=== PATIENT | female | born 1985 | race Caucasian/White ===

== ENCOUNTER 2017-05-04 13:59 | Emergency (ER) | payer OTHER ==
[2017-05-04 14:13] VITALS: BP 126/71
[2017-05-04] MEDS ORDERED: Rabies Vaccine, PCEC INJ* 1 ml IM ONE (14:29)
[2017-05-04] MEDS ORDERED: Rabies Immune Globulin 10 ML* 150 UNIT/ML VIAL IM ONE (14:30)
[2017-05-04] MEDS ORDERED: Rabies Immune Globulin 2 ML* 150 UNITS/ML VIAL IM ONE ×2 (14:30→14:40)
--- NOTE | 2017-05-04 14:48 | UC ---
Bite Injury/Animal HPI - HPI Summary HPI Summary: Woke to bat in bedroom today. Here per [facility] for rabies prophylaxis. No known wounds or bites -- last tdap in 2010. - History of Current Complaint Chief Complaint: UCGeneralIllness Stated Complaint: RABIES EXPOSURE Time Seen by Provider: 05/04/17 14:18 Hx Obtained From: Patient Hx Last Menstrual Period: 04/19/17 ?: No Severity Currently: None Onset/Duration: Sudden Onset Type of Bite: Wild Animal Has Animal Been Immunized?: N/A Associated Signs And Symptoms: Positive: Negative Animal Available for Observation: No Animal Control Notified: Yes - Allergies/Home Medications Allergies/Adverse Reactions: Allergies Allergy/AdvReac Type Severity Reaction Status Date / Time No Known Allergies Allergy Verified 05/04/17 14:12 Home Medications: Home Medications Etonogestrel IMPLANT(NF) [Implanon (NF)-not available] 1 applic ONCE 05/04/17 [ History Confirmed 05/04/17] Levothyroxine Sodium [Synthroid] 62.5 mcg PO DAILY 05/04/17 [History Confirmed 05/04/17] PMH/Surg Hx/FS Hx/Imm Hx Previously Healthy: Yes - Surgical History Surgical History: None - Family History Known Family History: Negative: Blood Disorder - Social History Lives: With Family Alcohol Use: Weekly Substance Use Type: None Smoking Status (MU): Former Smoker - Immunization History Most Recent Influenza Vaccination: approx 2010 Review of Systems Constitutional: Negative Skin: Negative Eyes: Negative ENT: Negative Respiratory: Negative Cardiovascular: Negative Gastrointestinal: Negative Genitourinary: Negative Motor: Negative Neurovascular: Negative Musculoskeletal: Negative Neurological: Negative Psychological: Negative All Other Systems Reviewed And Are Negative: Yes Physical Exam Triage Information Reviewed: Yes Appearance: Well-Appearing, No Pain Distress, Well-Nourished Vital Signs: Initial Vital Signs Temp 99.1 F 05/04/17 14:07 Pulse 88 05/04/17 14:07 Resp 18 05/04/17 14:07 BP 126/71 05/04/17 14:07 Pulse Ox 99 05/04/17 14:07 Vital Signs Reviewed: Yes Eye Exam: Normal Eyes: Positive: Conjunctiva Clear ENT Exam: Normal ENT: Positive: Normal ENT inspection, Hearing grossly normal, Pharynx normal, TMs normal Dental Exam: Normal Neck exam: Normal Neck: Positive: Supple, Nontender, No Lymphadenopathy Respiratory Exam: Normal Respiratory: Positive: Chest non-tender, Lungs clear, Normal breath sounds, No respiratory distress, No accessory muscle use Cardiovascular Exam: Normal Cardiovascular: Positive: RRR, No Murmur Musculoskeletal Exam: Normal Neurological Exam: Normal Neurological: Positive: Alert Psychological Exam: Normal Skin Exam: Normal Bite Injury Course/Dx - Course Course Of Treatment: no tdap given today because pt is UTD and has no identifiable wounds. - Differential Dx/Diagnosis Provider Diagnoses: rabies exposure. rabies prophylaxis Discharge - Discharge Plan Condition: Stable Disposition: HOME Patient Education Materials: Rabies (ED), Rabies Vaccine (By injection) Referrals: Zoraida Meyer MD [Primary Care Provider] - Additional Instructions: Follow up with the [facility] Department for further rabies vaccines.
== END 2017-05-04 16:04 | disposition home or self-care (01) ==
LOC: UCEAST 13:59
DX: Z20.3 Contact with and (suspected) exposure to rabies (principal); Z29.14 Encounter for prophylactic rabies immune globulin; Z87.891 Personal history of nicotine dependence
CPT/HCPCS: 90375; 90471; 90675; 96372; 99211; G0463

== ENCOUNTER 2019-06-27 18:40 | Inpatient (IN) | payer OTHER ==
[2019-06-28] MEDS ORDERED: Buffered Lidocaine 1% SYRIN* 1 ML/SYRINGE INTRADERM ONE (00:19)
[2019-06-28] MEDS ORDERED: Dinoprostone* 10 MG VAG.SUPP VAGINAL ONE (00:19)
[2019-06-28] MEDS ORDERED: Lactated Ringers 1000 ML Bag* 1,000 ML IV ONE (00:19)
--- NOTE | 2019-06-28 00:28 | HP ---
General Information - Reason for Visit Postdates ripening/IOL - General Information Maternal Age: 34 Grav: 1 Para: 0 SAB: 0 IEA: 0 Estimated Due Date: 06/20/19 Determined By: LMP Maternal Blood Type and Rh: O Positive - Results this Serology/RPR Result: Non-Reactive Rubella Result: Immune HBsAg Result: Negative HIV Result: Negative GBS Culture Result: Negative Past Medical History Delivery History: See Records Delivery History Comment: no prior deliveries Pertinent Past Medical History: See Records Past Medical History Comment: hypothyroidism, on replacement. Depression, not on medication. Migraine Pertinent Past Surgical History: See Records Past Surgical History Comment: wisdom tooth extraction - 2000 Pertinent Family History: See Records Family History Comment: Father: Hypertension, hyperlipidemia Mother: due to cirrhosis, alcoholism - Antepartal Records Antepartal Records: Reviewed, Complicated by: - hypothyroidism, placenta previa (resolved) Review of Systems Constitutional: Comfortable CV Complaint: No Respiratory: Shortness of Breath: No Gastrointestinal: No Nausea/Vomiting Genitourinary: No Dysuria, No Bleeding, No Leaking Fluid Musculoskeletal: No Complaint, No Epigastric Pain Neurological: No Headache, No Visual Changes Movement: Normal Exam Allergies/Adverse Reactions: Allergies No Known Allergies Allergy (Verified 05/04/17 14:12) B/P: 125/81, P: 90, R: 20 - Measurements Height: 5 ft 4 in Weight: 220 lb Weight in lbs: [id number] Body Mass Index (BMI): 37.8 Pre- Weight: 205 lb Weight Gained This : 15 lbs and 0 ozs - Exam Breast: Breast Exam Deferred CVA: No CVA Tenderness Extremities: No Edema Heart: Normal Rhythm/Heart Sounds HEENT: No Significant Findings Lungs: Clear Bilaterally Reflexes: DTR 2+ - Abdominal Exam Abdomen Exam: Non-Tender, Fundal Height Consistent with Dates Targeted Exam Findings See L&D Outpatient Visit Provider Note for Findings: N/A Estimated Weight: 8 lb by reanna's Cervical Exam: 1cm Effacement: 50% Station: -2 Presenting Part: Vertex Membrane Status: Intact Bleeding/Discharge: None EFM Findings - External Monitor Findings Baseline Heart Rate: 120 External Monitor Findings: Accelerations Present, No Pattern of Variable or Late Decelerations, Variability Moderate, Baseline Stable Contractions: Irregular, Mild, 45-90 Seconds Assessment/Plan - Assessment A: IUP at 41 0/7 weeks Category I FHR, no evidence of metabolic acidemia GBS negative Rodriguez Score: 3 P: Discussed cervidil for ripening; Sol in agreement Reassess PRN Anticipate SVB - Obstetrical Risk Factors Obstetrical Risk Factors: Post-Dates, Obesity - Plan Plan: Cervical Ripening, Admit - Anticipate Vaginal Delivery - Date/Time of Admission Date of Admission: 06/28/19 Time of Admission: 00:00
[2019-06-28 05:37] LABS: Urine Benzodiazepine Screen None Detected (None Detect); Urine Opiates Screen None Detected (None Detect)
--- NOTE | 2019-06-28 11:14 | PTEDU ---
Patient Name: PRABHU DEL VALLE LASHELLPRABHU WYATT selected video: Never Ever Shake a Baby to view on 06/28/2019 at 11:12:16 AM [id number]
--- NOTE | 2019-06-28 11:28 | PTEDU ---
Patient Name: PRABHU DEL VALLE PRABHU DEL VALLE selected video: BBOB: Nurturing Your Gorgeous &Growing Baby by to view on 06/28/2019 at 11:26:02 AM [id number]
[2019-06-28] MEDS ORDERED: Acetaminophen TAB* 325 MG PO PRN (12:52)
--- NOTE | 2019-06-28 13:59 | PN ---
Progress Note - Progress Note Date of Service: 06/28/19 Note: S: Pt resting in bed. Feeling some cramping, but comfortable. Pt reports headache improving. Denies s/sx of PEC. O: VE: 2/50/-2, soft, vtx FHR 135, moderate variability, +accels, no decels Cervidil removed A: 34 yo, IUP@41, not in active labor Cervidil removed without complication No evidence of metabolic acidemia Contractions every 2-4 mins P: PARQ discussion about next step for ripening, including cook catheter and pitocin. Pt and do not want to use pitocin unless absolutely necessary. Opts for cook catheter. Pain meds prn Anticipate progression to active labor.
--- NOTE | 2019-06-28 21:07 | PN ---
Progress Note - Progress Note Date of Service: 06/28/19 Note: Cook catheter placed. Uterine and vaginal balloon inflated to 80mL. Pt tolerated procedure well. Again declines Pitocin.
[2019-06-28] MEDS ORDERED: Nalbuphine* 10 MG/ML 1 ML VIAL IM PRN (21:28)
[2019-06-28] MEDS ORDERED: Promethazine INJ(RESTRICTED)* 25 MG/ML 1 ML VIAL IM PRN (21:29)
[2019-06-28] MEDS: Levothyroxine TAB* 75 MCG TAB PO SCH (21:45)
--- NOTE | 2019-06-28 22:18 | PN ---
Progress Note - Progress Note Date of Service: 06/28/19 Note: S: Pt resting in bed. Ongoing back pain. Watching a movie. Requesting pain meds. O: VE: deferred VSS stable A: 34 yo, IUP@41, not in active labor Cook catheter in place P: IM nubain and phenergan ordered. SE reviewed with patient. Plan to remove Cook catheter at 0200. Will develop plan for ongoing induction following removal. Anticipate progression to active labor.
--- NOTE | 2019-06-29 02:42 | PN ---
Progress Note - Progress Note Date of Service: 06/29/19 Note: S: Pt sleeping. Had nubain/phenergan at 2140. Not feeling contractions. Denies vb/ lof. Active FM. O: VE: 98.5, BP 110/76, HR 79 FHR 125, moderate, +accels, no decels Cook catheter removed A: 34 yo, IUP@41, not in active labor VSS, afebrile No evidence of metabolic acidemia Uterus palpates moderate with contractions, good resting tone Pt tolerated removal of Cook catheter well P: Discussed starting Pitocin now. Pt would like to sleep for 4-5 hours and resume IOL in the AM. Anticipate progression to active labor.
[2019-06-29] MEDS ORDERED: Influenza VAC *QUAD* 2019-20* 0.5 ML SYRINGE IM ONE (09:00)
--- NOTE | 2019-06-29 09:38 | PN ---
Progress Note - Progress Note Date of Service: 06/29/19 SOAP: Subjective: Pt feeling well, slept overnight. Has some trepidation about Pitocin but feels ready to start. Objective: Cervical exam deferred (was favorable at last check) FHR: Baseline 130/ moderate variability/ + accels/ no decels UCs: none Temp: 98.7 BP: 107/80 position LIZANDRO by Saqib's Assessment: 34 year old at 41 2/7 weeks gestation with favorable cervix, no evidence of acidemia, here for IOL for postdates and oligohydramnios. Membranes intact. Plan: Discussed options with pt, including Pitocin induction vs amniotomy. As she is primiparous and not currently chandrika, I recommend Pitocin induction, can consider amniotomy once pt in more active labor, but would prefer not to risk prolonged rupture of membranes. Pt agrees. Discussed risks and benefits of Pitocin, expected progression of labor. Orders placed for IV access and initiation of Pitocin induction.
[2019-06-29] MEDS ORDERED: Oxytocin in LR* 20 UNITS/1,000 ML BAG IVPB SCH (10:00)
[2019-06-29] MEDS: Lactated Ringers 1000 ML Bag* 1,000 ML IV SCH (10:10)
[2019-06-29 10:18] LABS: ABS Lymphocytes 1.3 10^3/ul (1.0-4.8); ABS Monocytes 0.9 10^3/ul (0-0.8); ABS Neutrophils 10.7 10^3/ul (1.5-7.7); Eosinophil % 0.3 %; Hematocrit 39 % (35-47); Hemoglobin 13.2 g/dL (12.0-16.0); Lymphocyte % 9.8 %; Mean Corpuscular HGB Conc 34 g/dL (31-36); Mean Corpuscular Hemoglobin 31 pg (27-31); Mean Corpuscular Volume 92 fL (80-97); Platelet Count 201 10^3/uL (150-450); Red Blood Count 4.26 10^6 /uL (3.70-4.87); Red Cell Distribution Width 14 % (10-15)
--- NOTE | 2019-06-29 12:00 | PTEDU ---
Patient Name: PRABHU DEL VALLE PRABHU DEL VALLE selected video: Follow Me Mum: The [facility] to Successful to view on 06/29/2019 at 11:57:50 AM from [id number]
--- NOTE | 2019-06-29 12:46 | PN ---
Progress Note - Progress Note Date of Service: 06/29/19 SOAP: Subjective: Pt comfortable. Ambulated in the halls for a while, now eating lunch. Will try to take a nap when done. Feeling some mild ctx. Objective: FHR: Baseline 130/ moderate variability/ + accels/ no decels UCs: 3-4 minutes Pitocin at 8 mu/min BP: 117/74, T-97.5 Assessment: Pitocin induction proceeding. FHR with no evidence of acidemia. Not yet in active labor. Plan: Continue Pitocin induction. Labor support and comfort measures as needed.
--- NOTE | 2019-06-29 15:09 | PN ---
Progress Note - Progress Note Date of Service: 06/29/19 SOAP: Subjective: Pt more uncomfortable with ctx. Reports intermittent tightening in low back, wrapping around to front. Rested but did not nap. Has been doing some counterpressure with . Appears to be coping well. Objective: FHR: Baseline 125 cc/ hr UCs: 2-3 minutes Pitocin at 10 mu/min Membranes intact Assessment: Pt appears to be getting into more active labor. No evidence of acidemia. Coping well. Plan: Continue Pitocin augmentation. Labor support and comfort measures as needed.
--- NOTE | 2019-06-29 17:47 | PN ---
Progress Note - Progress Note Date of Service: 06/29/19 SOAP: Subjective: Pt much more uncomfortable now. C/o back pain with ctx as well as in between. Currently leaning forward towards bed, academic guidance specialist using rebozo to do abdominal lifts and warm packs to back. Objective: Pitocin was titrated down in response to pt's ctx until it was turned off. Pt continues to have strong UCs 3-5 minutes apart. FHR: auscultated through ctx at 125 w/ accel auscultated. Membranes intact Assessment: Pt appears to be getting into more active labor. Pitocin off at this time, can restart if UCs space out. Pt coping well with strong support from academic guidance specialist and . Cervical exam deferred at this time. Plan: Expectant management at this time. Can restart Pitocin if needed. Will recheck cervix when pt feels ready. Labor support and comfort measures. Intermittent auscultation. Anticipate .
--- NOTE | 2019-06-29 20:21 | PN ---
Progress Note - Progress Note Date of Service: 06/29/19 SOAP: Subjective: Pt used tub for a while, now using nitrous oxide, coping effectively with contractions. and regulatory submissions specialist at bedside Objective: FHR: Baseline 130/ frequent accelerations/ no decelerations/ moderate variability UCs: Q 2-3 minutes, strong Temp: 98.2, BP- 130/84 Probable SROM to clear fluid while in tub Cervix: 6-7cm/ +1/ vtx/ 100% Assessment: Pt making good progress, coping well. No evidence of acidemia or chorioamnionitis. Plan: Continue expectant management. Continue nitrous oxide for pain relief as desired by pt. Anticipate .
--- NOTE | 2019-06-29 22:08 | PN ---
Progress Note - Progress Note Date of Service: 06/29/19 Note: Pt utilizing nitrous oxide w/ ctx. In hands and knees position leaning on back of bed. Very uncomfortable but coping well. Last exam: 8cm/ 100%/ +1/ vtx. FHR with no evidence of acidemia. Membranes likely ruptured, clear fluid. Continue nitrous oxide and labor support. Anticipate progression to complete dilation and spontaneous urge to push. Anticipate .
--- NOTE | 2019-06-29 23:22 | PN ---
Progress Note - Progress Note Date of Service: 06/29/19 SOAP: Subjective: Pt back in tub. Coping well. Arson Investigator and bedside her. Objective: FHR: Baseline 115, moderate variability, + accels, no decels UCs: Q 3-5 minutes T: 98.1 Most recent cervical exam: 8cm/ 100%/ +1 at 2137 Assessment: Pt coping well with good support. No evidence of chorioamnionitis or acidemia. Plan: Recheck when tolerated by pt. We have done multiple position changes, she has sat on the toilet, now back in tub. Anticipate .
[2019-06-30] MEDS: Lactated Ringers 1000 ML Bag* 1,000 ML IV SCH ×2 (00:10→04:09)
[2019-06-30] MEDS ORDERED: OBEPIDURAL* 250 ML EPIDURAL ONE ×2 (00:42→01:10)
[2019-06-30] MEDS ORDERED: Sodium Citrate/Citric Acid* 15 ML UDC PO PRN (01:40)
[2019-06-30] MEDS ORDERED: Phenylephrine 40 MCG/ML SYRINGE IV PUSH PRN ×2 (01:40)
[2019-06-30] MEDS ORDERED: Lactated Ringers 1000 ML Bag* 1,000 ML IV ONE (01:40)
[2019-06-30] MEDS ORDERED: Famotidine TAB* 20 MG PO PRN (01:40)
[2019-06-30] MEDS ORDERED: Lactated Ringers 1000 ML Bag* 500 ML IV PRN ×2 (01:40)
[2019-06-30] MEDS ORDERED: OBEPIDURAL* 250 ML EPIDURAL SCH (02:00)
[2019-06-30] MEDS ORDERED: Lactated Ringers 1000 ML Bag* 1,000 ML IV SCH ×2 (02:00→11:00)
--- NOTE | 2019-06-30 02:25 | PN ---
Progress Note - Progress Note Date of Service: 06/30/19 SOAP: Subjective: Pt requested and received labor epidural. Now resting comfortably. and feed mill tender at bedside. Objective: FHR: Baseline 120/ moderate variability/ + accels/ no decels UCs: 1-8 minutes BP: 128/74 Temp: 98.2 Assessment: Pt with slowed rate of dilation. No evidence of acidemia. Plan: Rest with epidural. Will consider Pitocin augmentation if ctx continue to be irregular or space out. Anticipate .
--- NOTE | 2019-06-30 04:08 | PN ---
Progress Note - Progress Note Date of Service: 06/30/19 SOAP: Subjective: Pt sleeping comfortably Objective: Cervix: Anterior lip/ +1/ vtx FHR: Baseline 120/ moderate variability/ + accels/ no decels UCs: Q10-12 minutes Assessment: Pt making progress but ctx spacing out. Pt previously declined Pitocin but states okay with it now. No evidence of acidemia. Plan: Restart low dose Pitocin. Anticipate normal progression to complete, .
[2019-06-30] MEDS ORDERED: Methylergonovine INJ* 0.2 MG/ML 1ML AMP ONE (10:06)
[2019-06-30] MEDS ORDERED: Misoprostol TAB* 200 MCG PR ONE (10:46)
[2019-06-30] MEDS ORDERED: Glycerin ADULT SUPP PR PRN (10:46)
[2019-06-30] MEDS ORDERED: Methylergonovine INJ* 0.2 MG/ML 1ML AMP IM ONE (10:46)
[2019-06-30] MEDS ORDERED: Dibucaine 1% 28.35 GM TUBE PR PRN (10:46)
[2019-06-30] MEDS ORDERED: Acetaminophen TAB* 325 MG PO PRN (10:46)
--- NOTE | 2019-06-30 10:56 | PROCNOTE ---
[facility] OB: Delivery Note - Delivery A Date of : 06/30/19 Time of : 09:52 [place] Sex: Female Score 1 Minute: 9 Score 5 Minutes: 9 Gestational Age in Weeks and Days at Delivery: 41 Weeks and 3 Days Delivery Method: Spontaneous Vaginal Labor: Induced Did Patient attempt ?: N/A, No Previous Amniotic Fluid: Clear Estimated Blood Loss: 750 Anesthesia/Analgesia: CEI for Labor, Nitrous-Labor Anesthesia Comment: Dr. Morgan Delivered By: Bouchra Maguire - Nursery Level of Nursery: Regular/Bedside - Perineum Perineal Injury: 2nd Degree Perineal Injury Comment: with 3-0 vicryl rapide Perineal Repair: By Delivering Practioner - Events Delivery Events of Note: Pitocin During Labor, Protracted/Long Labor, Post- Bleeding - Meds Given - Risk for Falls Delivered OB Patient- Risk for Falls: Heavy Bleeding Fall Risk: Patient is at High Risk for Falls - Additional Delivery Notes Additional Delivery Notes: G1PO now 41 3 received cervidil x 2 and cook catheter for postdates ripening followed by pitocin augmentation of labor. Experienced SROM at 1835 to clear fluid, received CEI per preference with good relief. Began pushing at 0720 with Jessica Hawkins CNM and care assumed by this author at 0800. Sol in hands- knees position, infant crowned slowly OA to LIZANDRO at 1952, shoulders followed easily with next push. Female infant passed through maternal legs, Sol assisted into reclining position. vigorous, HR>110, spontaneous cry, bulb suctioned for copious secretions. Cord was doubly clamped and cut by mother after pulsations ceased, about 4 mins. Intact jian placenta at 1001, brisk bleeding noted. Pitocin increased to 250 and misoprostol 800 mcg [place] given. Clots expressed from lower uterine segment, bleeding continued and 0.2 methergine given in right thigh. Bleeding slowed, fundus firm with massage. Perineum and vagina inspected, 2nd degree laceration noted and repaired in the usual fashion. Mother and stable at time of note, initiated, EBL = 750
[2019-06-30] MEDS ORDERED: Oxytocin in LR* 20 UNITS/1,000 ML BAG IVPB SCH (11:00)
[2019-06-30] MEDS ORDERED: Simethicone TAB* 80 MG TAB.CHEW PO SCH (12:30)
[2019-06-30] MEDS ORDERED: Ammonia Inhalant* 1 EA AMP ONE (12:47)
[2019-06-30] MEDS: Docusate CAP* 100 MG PO SCH ×2 (14:20→21:29)
[2019-06-30] MEDS: Witch Hazel PAD* JAR TOPICAL PRN (16:46)
[2019-06-30] MEDS: Ibuprofen TAB* 600 MG PO SCH (18:22)
--- NOTE | 2019-06-30 19:36 | PTEDU ---
Patient Name: PRABHU DEL VALLE LASHELLPRABHU WYATT selected video: BBOB: Bonding Through Infant Massage to view on 06/30/2019 at 7:33:42 PM [email or web address]
--- NOTE | 2019-06-30 20:26 | PTEDU ---
Patient Name: PRABHU DEL VALLE PRABHU DEL VALLE selected video: BBOB: Nurturing Your Gorgeous &Growing Baby by to view on 06/30/2019 at 8:23:13 PM [id number]
[2019-06-30] MEDS: Levothyroxine TAB* 75 MCG TAB PO SCH ×2 (21:30→22:20)
[2019-07-01] MEDS: Ibuprofen TAB* 600 MG PO SCH ×2 (08:15→18:15)
[2019-07-01] MEDS: Docusate CAP* 100 MG PO SCH ×3 (08:16→21:17)
[2019-07-01 08:19] LABS: Hematocrit 28 % (35-47); Hemoglobin 9.6 g/dL (12.0-16.0); Mean Corpuscular HGB Conc 34 g/dL (31-36); Mean Corpuscular Hemoglobin 31 pg (27-31); Mean Corpuscular Volume 92 fL (80-97); Platelet Count 189 10^3/uL (150-450); Red Blood Count 3.05 10^6 /uL (3.70-4.87); Red Cell Distribution Width 14 % (10-15); White Blood Count 18.3 10^3/uL (3.5-10.8)
[2019-07-01 08:47] LABS: ABS Basophils 0.1 10^3/ul (0-0.2); ABS Lymphocytes 2.2 10^3/ul (1.0-4.8); ABS Monocytes 1.6 10^3/ul (0-0.8); ABS Neutrophils 14.4 10^3/ul (1.5-7.7); Eosinophil % 0.2 %
[2019-07-01] MEDS: Ferrous Gluconate TAB* 324 MG TAB PO SCH ×2 (09:00→21:17)
[2019-07-01] MEDS ORDERED: Lidocaine 1% INJ* 10 MG/ML 30 ML SDV ONE (19:18)
[2019-07-01] MEDS: Witch Hazel PAD* JAR TOPICAL PRN (21:17)
[2019-07-01] MEDS: Levothyroxine TAB* 75 MCG TAB PO SCH (21:17)
[2019-07-02] MEDS: Ferrous Gluconate TAB* 324 MG TAB PO SCH (08:23)
[2019-07-02] MEDS: Docusate CAP* 100 MG PO SCH (08:23)
[2019-07-02] MEDS: Ibuprofen TAB* 600 MG PO SCH (08:23)
[2019-07-02 08:29] VITALS: BP 112/76
== END 2019-07-02 11:20 | disposition home or self-care (01) | DRG 807 ==
LOC: MCHOBOUT 18:40 → MCHOB 06-28 00:30
PROVIDERS: ADMIT Midwife; ATTEND Midwife
PROC: 10E0XZZ Delivery of Products of Conception, External Approach (ICD-10-PCS; principal; 2019-06-30)
PROC: 0KQM0ZZ Repair Perineum Muscle, Open Approach (ICD-10-PCS; 2019-06-30)
PROC: 3E033VJ Introduction of Other Hormone into Peripheral Vein, Percutaneous Approach (ICD-10-PCS; 2019-06-30)
DX: O48.0 Post-term pregnancy (principal); Z37.0 Single live birth; O70.1 Second degree perineal laceration during delivery; O99.284 Endocrine, nutritional and metabolic diseases complicating childbirth; E03.9 Hypothyroidism, unspecified; O99.344 Other mental disorders complicating childbirth; F32.9 Major depressive disorder, single episode, unspecified; O99.214 Obesity complicating childbirth; O90.81 Anemia of the puerperium; D64.9 Anemia, unspecified; Z3A.41 41 weeks gestation of pregnancy
CPT/HCPCS: 36415; 59200; 80307; 85025; 86850; 86900; 86901; 90686; A9270-GY; J2210; J2300; J2550

== ENCOUNTER 2024-08-24 11:27 | Inpatient (IN) ==
[2024-08-24 14:02] LABS: Urine Benzodiazepine Screen None Detected (None Detect); Urine Cannabinoids Screen None Detected (None Detect); Urine Opiates Screen None Detected (None Detect)
[2024-08-24] MEDS: Lactated Ringers 1000 ml BAG 1,000 ML IV ONE (15:58)
[2024-08-24] MEDS: Oxytocin in LR 20,000 MILLI.UNIT/1,000 ML BAG IV SCH (16:00)
[2024-08-24 16:31] LABS: ABS Basophils 0.1 10^3/uL (0.0-0.1); ABS Monocytes 0.8 10^3/uL (0.0-0.9); Eosinophil % 0.3 %; Hematocrit 36.6 % (35-45); Hemoglobin 12.3 g/dL (11.5-14.3); Lymphocyte % 16.5 %; Mean Corpuscular Hemoglobin 30.9 pg (27-33); Mean Corpuscular Hgb Conc 33.8 g/dL (31-36); Mean Corpuscular Volume 91.4 fL (80-97); Mean Platelet Volume 10.5 fL (7.5-11.2); Platelet Count 226 10^3/uL (150-450); White Blood Count 11.9 10^3/uL (3.8-11.8)
[2024-08-24] MEDS: Lactated Ringers 1000 ml BAG 1,000 ML IV SCH (21:47)
[2024-08-24] MEDS ORDERED: Phenylephrine 40 mcg/mL 10mL (400mcg) SYRINGE IV PUSH PRN ×2 (23:47)
[2024-08-24] MEDS ORDERED: Sodium Citrate/Citric Acid LIQ 15 ML UDC PO PRN (23:47)
[2024-08-25] MEDS: Lidocaine 1% VIAL 10 MG/ML 30 ML VIAL INJ PRN (00:10)
[2024-08-25] MEDS ORDERED: Lactated Ringers 1000 ml BAG 1,000 ML IV SCH (01:00)
[2024-08-25] MEDS: Dibucaine 1% OINT 28.35 GM TUBE PR PRN (01:20)
[2024-08-25] MEDS: Witch Hazel PAD JAR TOPICAL PRN (01:20)
[2024-08-25] MEDS: Lactated Ringers 1000 ml BAG 1,000 ML IV ONE (19:50)
[2024-08-25] MEDS: Oxytocin in LR 20,000 MILLI.UNIT/1,000 ML BAG IV SCH (19:50)
[2024-08-25] MEDS: OBEPIDURAL (200 ML) 200 ML EPIDURAL SCH (19:50)
[2024-08-25] MEDS: Phenylephrine 40 mcg/mL 10mL (400mcg) SYRINGE ONE (19:51)
[2024-08-25] MEDS: Lactated Ringers 1000 ml BAG 1,000 ML IV SCH (19:51)
[2024-08-25] MEDS: Lidocaine 1.5% EPI 1:200,000 30 ML SDV ONE (19:51)
[2024-08-25] MEDS: OBEPIDURAL (200 ML) 0 ML EPIDURAL ONE (19:51)
[2024-08-26 07:04] LABS: ABS Basophils 0.1 10^3/uL (0.0-0.1); ABS Eosinophils 0.1 10^3/uL (0.0-0.5); ABS Lymphocytes 2.8 10^3/uL (1.0-4.8); ABS Neutrophils 8.6 10^3/uL (1.5-7.6); Eosinophil % 0.8 %; Hematocrit 31.3 % (35-45); Hemoglobin 10.6 g/dL (11.5-14.3); Lymphocyte % 21.9 %; Mean Corpuscular Hemoglobin 31.1 pg (27-33); Mean Corpuscular Hgb Conc 33.8 g/dL (31-36); Mean Corpuscular Volume 91.8 fL (80-97); Mean Platelet Volume 9.8 fL (7.5-11.2); Platelet Count 207 10^3/uL (150-450); Red Blood Count 3.41 10^6/uL (3.63-4.92); Red Cell Distribution Width 13.8 % (12-17); White Blood Count 12.6 10^3/uL (3.8-11.8)
[2024-08-26 07:27] VITALS: BP 114/62
== END 2024-08-26 15:50 | disposition home or self-care (01) | DRG 807 ==
LOC: MCHOBOUT 11:27 → MCHOB 11:38
PROVIDERS: ADMIT Midwife; ATTEND Midwife